=== PATIENT | male | born 1970 | race Two or more races ===

== ENCOUNTER 2020-04-14 16:17 | Emergency (ER) | payer BC ==
--- NOTE | 2020-04-14 17:45 | ER Document Report ---
ED General - General Chief Complaint: Rib Pain Stated Complaint: POSSIBLE HIP INJURY Time Seen by Provider: 04/14/20 17:41 Primary Care Provider: ANTONIA PANIAGUA DO [Primary Care Provider] - Follow up as needed TRAVEL OUTSIDE OF THE [place] IN LAST 30 DAYS: No - HPI Notes: 49-year-old male presents with left-sided rib pain after a fall. Patient states that he was outside and slipped on the wet grass, he fell and landed on a train tire which he had in his backyard. Occurred around 3 PM. He denies loss of consciousness, did not hit his head. States that he is having pain to the left side which increases with breathing, he states he also feels a bubbling feeling. Pain is mostly near his left armpit and extends down his lateral chest wall. Reports pain has been markedly improved with the medication he received via EMS. He denies abdominal pain. His arrival complaint is noted to be hip pain, patient denies having any hip pain. Patient consumes alcohol daily. - Related Data Allergies/Adverse Reactions: No Known Allergies Allergy (Verified 10/27/15 10:11) Past Medical History - General Information source: Patient - Social History Smoking Status: Current Every Day Smoker Frequency of alcohol use: Heavy Family History: Reviewed & Not Pertinent - Past Medical History Cardiac Medical History: Reports: Hx Hypercholesterolemia Denies: Hx Coronary Artery Disease, Hx Heart Attack, Hx Hypertension Pulmonary Medical History: Denies: Hx Asthma, Hx Bronchitis, Hx COPD, Hx Pneumonia Neurological Medical History: Denies: Hx Cerebrovascular Accident, Hx Seizures GI Medical History: Reports: Hx Gastroesophageal Reflux Disease Musculoskeletal Medical History: Reports Hx Arthritis Psychiatric Medical History: Reports: Hx Depression Infectious Medical History: Past Surgical History: Reports: Hx Orthopedic Surgery - left knee reconstruction 1993. Denies: Hx Pacemaker - Immunizations Hx Diphtheria, Pertussis, Tetanus Vaccination: Yes Review of Systems - Review of Systems Constitutional: No symptoms reported EENT: No symptoms reported Cardiovascular: denies: Chest pain Respiratory: Hurts to breathe. denies: Cough, Short of breath Gastrointestinal: denies: Abdominal pain Genitourinary: No symptoms reported Male Genitourinary: No symptoms reported Musculoskeletal: denies: Back pain, Joint pain Skin: Other - No wound Hematologic/Lymphatic: No symptoms reported Neurological/Psychological: denies: Lost consciousness, Headaches Physical Exam - Vital signs Vitals: Resp Pulse Ox 14 92 04/14/20 16:23 04/14/20 16:23 - General General appearance: Appears well, Alert In distress: None - HEENT Head: Normocephalic, Atraumatic Eyes: No: Scleral icterus Extraocular movements intact: Yes Pupils: PERRL Neck: Supple, Other - Full range of motion - Respiratory Chest status: No: Ecchymosis, Wounds, Splinting Breath sounds: Normal Chest palpation: Tender - Left middle/inferior chest wall, lateral aspect. No: Subcutaneous emphysema - Cardiovascular Rhythm: Regular Heart sounds: Normal auscultation - Abdominal Inspection: Other - No ecchymosis. No: Wounds Tenderness: Nontender - Extremities General upper extremity: Nontender, Normal ROM General lower extremity: Nontender, Normal ROM - Neurological Neuro grossly intact: Yes Cognition: Normal Orientation: AAOx4 Darrius Coma Scale Eye Opening: Spontaneous Uriah Coma Scale Verbal: Oriented Uriah Coma Scale Motor: Obeys Commands Darrius Coma Scale Total: 15 Motor strength normal: LUE, RUE, LLE, RLE - Psychological Associated symptoms: Normal affect - Skin Skin Temperature: Warm Course - Re-evaluation Re-evalutation: 49-year-old male presents with left sided rib pain after he slipped and fell, landing on a tire. No head injury, no loss of consciousness. Patient is hemodynamically stable, GCS 15, no neuro deficits appreciated. He has equal breath sounds bilaterally, he has no ecchymosis or wounds to the left chest wall, no crepitance is appreciated. A chest x-ray has been performed, report still pending, I reviewed the images and do not appreciate any gross rib fractures or pneumothorax or subcutaneous air. I discussed with patient likely has some degree of contusion to his rib cage, possible microsplintering. Will treat symptoms with Toradol, Adams, Flexeril and lidocaine patch. 04/14/20 18:42 Chest x-ray report is available. There is no pneumothorax or rib fracture, overall read as no acute finding per radiology. Patient and updated on results. Patient does not want any opiates prescribed as he has been clean for 15 years. Discussed with him multimodal control with Tylenol, ibuprofen, Flexeril and lidocaine patches. Return precautions given, stable at time of discharge. - Vital Signs Vital signs: Temp Pulse Resp BP Pulse Ox 97.8 F 16 139/103 H 96 04/14/20 16:44 04/14/20 18:01 04/14/20 18:01 04/14/20 18:01 - Laboratory Results Critical Laboratory Results Reviewed: No Critical Results - Radiology Results Critical Radiology Results Reviewed: No Critical Results Discharge - Discharge Clinical Impression: Fall from standing Qualifiers: Encounter type: initial encounter Qualified Code(s): W19.XXXA - Unspecified fall, initial encounter Contusion of rib on left side Qualifiers: Encounter type: initial encounter Qualified Code(s): S20.212A - Contusion of left front wall of thorax, initial encounter Disposition: HOME, SELF-CARE Additional Instructions: Use commendation of Tylenol, ibuprofen, Flexeril and lidocaine patches for pain relief. Please have close follow-up with your primary care doctor. Return to the emergency department for any concerning worsening symptoms. Prescriptions: Cyclobenzaprine HCl [Flexeril 10 mg Tablet] 10 mg PO TIDP PRN #30 tab PRN Reason: Referrals: ANTONIA PANIAGUA DO [Primary Care Provider] - Follow up as needed
--- NOTE | 2020-04-14 17:56 | RADIOLOGY REPORT (SQ) ---
EXAM DESCRIPTION: CHEST 2 VIEWS IMAGES COMPLETED DATE/TIME: 04/14/2020 5:25 pm REASON FOR STUDY: fall COMPARISON: None. EXAM PARAMETERS: NUMBER OF VIEWS: two views TECHNIQUE: Digital Frontal and Lateral radiographic views of the chest acquired. RADIATION DOSE: NA LIMITATIONS: none FINDINGS: LUNGS AND PLEURA: No opacities, masses or pneumothorax. No pleural effusion. MEDIASTINUM AND HILAR STRUCTURES: No masses or contour abnormalities. HEART AND VASCULAR STRUCTURES: Heart normal size. No evidence for failure. BONES: No acute findings. HARDWARE: None in the chest. OTHER: No other significant finding. IMPRESSION: NO ACUTE RADIOGRAPHIC FINDING IN THE CHEST. TECHNICAL DOCUMENTATION: JOB ID: [id number] [employer]- All Rights Reserved Reading location - IP/workstation name: [email or web address]
[2020-04-14] MEDS ORDERED: KETOROLAC TROMETHAMINE INJ/PF 30 MG/1 ML SDV IV ONE (17:58)
[2020-04-14] MEDS ORDERED: HYDROCODONE/ACETAMINOPHEN 5-325 MG TABLET PO ONE (17:58)
[2020-04-14] MEDS ORDERED: LIDOCAINE 5% (700 MG) TRANSDERMAL ADH..PATCH TP ONE (17:59)
[2020-04-14] MEDS ORDERED: CYCLOBENZAPRINE HCL 10 MG TABLET PO ONE (17:59)
[2020-04-14 18:25] VITALS: BP 139/103
== END 2020-04-14 19:13 | disposition home or self-care (01) ==
LOC: ER 16:17
DX: S20.212A Contusion of left front wall of thorax, initial encounter (principal); R07.81 Pleurodynia; R07.1 Chest pain on breathing; W01.198A Fall on same level from slipping, tripping and stumbling with subsequent striking against other object, initial encounter; Y93.89 Activity, other specified; Y92.007 Garden or yard of unspecified non-institutional (private) residence as the place of occurrence of the external cause; F17.200 Nicotine dependence, unspecified, uncomplicated
CPT/HCPCS: 99283; 96374; 71046; J1885